=== PATIENT | male | born 1960 | race American Indian/Alaskan Native ===

== ENCOUNTER 2019-02-06 07:39 | Outpatient (CLI) | payer BC ==
--- NOTE | 2019-02-06 09:29 | Vascular Lab Report ---
DUPLEX DOPPLER LOWER EXTREMITY VEINS, LEFT INDICATION: M79.606 PAIN I NLEG/M79.669 PAIN IN UNSPECIFIED LOWER LEG. TECHNIQUE: Duplex doppler imaging was performed through the veins of the left lower extremity using venous compr ession and other maneuvers. COMPARISON: None available. FINDINGS: Common Femoral vein: Negative. Superficial Femoral vein: Negative. Popliteal vein: Negative. Calf veins: Negative. Additional findings: None. IMPRESSION: 1. No sonographic evidence for DVT in the left lower extremity. Signer Name: Tarik Hercules MD Signed: 02/06/2019 9:25 AM Workstation Name: [id number]
--- NOTE | 2019-02-06 09:42 | Vascular Lab Report ---
DUPLEX DOPPLER LOWER EXTREMITY ARTERIAL, BILATERAL INDICATION: M79.606 PAIN IN LEG/M79.669 PAIN IN UNSPECIFIED LOWER LEG. Bilateral leg pain, hypertension, hyperlip idemia TECHNIQUE: Arterial duplex examination of both lower extremities performed using B-mode, color flow and spectral Doppler assessment. FINDINGS: RIGHT: Common Femoral Artery: PSV 94 cm/sec. Triphasic waveform. Proximal SFA: PSV 105 cm/sec. Triphasic waveform. Mid SFA: PSV 81 cm/sec. Triphasic waveform. Distal SFA: PSV 75 cm/sec. Triphasic waveform. Popliteal artery: PSV 58 cm/sec. Triphasic waveform. Posterior tibial artery: PSV 56 cm/sec. Triphasic waveform. Anterior tibial artery: PSV 91 cm/sec. Triphasic waveform. Dorsalis Pedis Artery: PSV 89 cm/sec. Triphasic waveform. LEFT: Common Femoral Artery: PSV 113 cm/sec. Triphasic waveform. Proximal SFA: PSV 120 cm/sec. Triphasic waveform. Mid SFA: PSV 93 cm/sec. Triphasic waveform. Distal SFA: PSV 73 cm/sec. Triphasic waveform. Popliteal artery: PSV 68 cm/sec. Triphasic waveform. Posterior tibial artery: PSV 75 cm/sec. Triphasic waveform. Anterior tibial artery: PSV 78 cm/sec. Triphasic waveform. Dorsalis Pedis Artery: PSV 55 cm/sec. Triphasic waveform. IMPRESSION: No significant lower extremity peripheral artery disease. Doppler Waveform: * Triphasic is normal. * Biphasic is abnormal if clear transition from triphasic signal along vascular tree. * Monophasic is abnormal. Signer Name: Robby Sarmiento Jr, MD Signed: 02/06/2019 9:38 AM Workstation Name: [id number]
== END 2019-02-06 07:40 | disposition home or self-care (01) ==
LOC: VAS 07:39
PROVIDERS: ATTEND Internal Medicine
DX: M79.661 Pain in right lower leg (principal); M79.662 Pain in left lower leg; E78.5 Hyperlipidemia, unspecified; I10 Essential (primary) hypertension
CPT/HCPCS: 93925